=== PATIENT | female | born 1965 | race Asian ===

== ENCOUNTER 2016-09-26 09:00 | Outpatient (RCR) | payer OTHER, BC ==
--- NOTE | 2016-08-21 15:02 | PT/OT/ST INITIAL EVALUATION ---
Department of Health and Human Services Form Approved [facility] Care Financing Administration OMB No. [id number] PLAN OF CARE/ASSESSMENT FOR OUTPATIENT REHABILITATION (Complete for Initial Claims Only) 1. PATIENT'S NAME Kat Coyne 2. ACC # [id number] 3. HICN NA 4. PROVIDER NO. [id number] 5. TYPE: OT 6. PRIOR HOSPITALIZATION NA 7. PRIMARY DX M77.11-lateral epicondylitis, right elbow. 8. TREATMENT DX Weakness 9. ONSET DATE 07/24/2016 10. REFERRAL DATE 07/28/2016 11. SOC. DATE 08/18/2016 12. TIME OF EVAL 2:04 p.m. to 3:03 p.[address]. [address] RE[address] PHYSICIAN Dr. Alayna Angulo 13. CHARGES/UNITS 59 Total Charges 34 evaluation- [id number] Low Complexity 10 ultrasound 15 manual therapy 14. G CODES NA 15. PRIOR LEVEL OF FUNCTION; PERTINENT HISTORY (Prior therapy results, reason for referral.) S: Prior to therapy the patient consented to today's evaluation and treatment. The patient is a 50-year-old female referred by Dr. Alayna Angulo to address occupational concerns secondary to right lateral epicondylitis. Description/mechanism of injury: The patient reports noticing increased pain symptoms along the right lateral epicondyle area last June or July. The patient reports it has become increasingly worse within the past few months. Home set up/Prior level of function: The patient lives with her and daughter. Prior to onset the patient was independent with all ADLs and IADL tasks, including work tasks. Current functional performance and deficits: The patient works on an assembly line consisting of repetitive movements. The patient reports difficulty completing work tasks of carrying, handling, and manipulating everyday objects. Reports increased pain with gripping and twisting of right forearm. The patient is currently on restrictions of no twisting or pushing at work and on a 10 pound weight limit. The patient reports difficulty with cutting food, fastening bra, carrying groceries and manipulating containers. Patient's symptoms are affecting her ability to sleep. The patient reports waking up multiple times due to increased pain levels and tingling/numbness symptoms in right upper arm. The patient reports she has been wearing a counterforce brace and reports it helping to some extent. Pain level and location: Along the right lateral epicondyle and dorsal forearm. The patient rates her pain as 2/10 with rest and 4/10 with movement. Pt also reports arm feeling achy. Aggravating factors: Twisting, gripping, and carrying heavier objects. Relieving factors: Warm baths, lemon mint and heat help to some extent. Diagnostic testing: No diagnostic tests have been performed at this time. PMH (PT, OT, hospitalizations): Thyroid problems. The patient has completed no previously therapies. Current medications: Aleve, Propranolol, methimazole. No medication to complicate therapy. Personal health rating: Fair Patient's Goal: The patient's goals are to decrease pain levels to be able to do all work tasks and daily activities with no difficulty. Pt wants to get better to avoid surgery. 16. INITIAL ASSESSMENT/SAFETY PRECAUTIONS/MEDICAL COMPLICATIONS (Level of function at start of care. Be specific, use objective measures, list problems.) O: APPEARANCE AND OBSERVATION: The patient appeared to her initial occupational therapy evaluation this date. The patient was able to complete within functional limits of all shoulder, elbow and wrist planes of bilateral lower extremities. Noted the patient reported pain at end ranges with wrist and elbow movements. RANGE OF MOTION/FLEXIBILITY: Wrist extension 0/10 pain, wrist flexion 3/10 pain from right lateral epicondyle down to wrists. Elbow flexion 3/10 pain, elbow extension 2/10 pain. Noted during movements the patient demonstrates hypermobility in elbow joints. With resistive wrist flexion and extension, the patient reports 2/10 pain. With resistive supination, the patient reports 2/10 pain. STRENGTH: Groundskeeper Porter strength-right 35 pounds, left 39 pounds. Pinch strength 2-point pinch: right 6 pounds, left 10 pounds. 3-point pinch: right 10 pounds, left 10 pounds. Lateral pinch: right 8 pounds, left 10 pounds. OUTCOME ASSESSMENTS: The QuickDASH was completed this date, which is a standardized assessment with a score of 43.18. A score of 0 indicates no difficulties or limitations with daily activities or leisure tasks. The patient reports her maximum pain within the past 24 hours as 3/10. SPECIAL TESTING: Cozen test completed with the patient reporting increased pain along right lateral epicondyle area, indicating positive results. Tristan maneuver completed with increased pain during movements, indicating positive. Long finger test completed with patient reporting increased pain along dorsal forearm, indicating positive results. Palpation: The patient reports mild tenderness to palpation along lateral epicondyle area. Sensation: The patient reports numbness and tingling when working along upper arm. COMPLEXITY LEVEL: The patient presents with decreased strength and increased pain levels, resulting in difficulty grasping, handling and manipulating everyday items with right hand. The patient presents with no comorbidities affecting occupational performance. Required no modification of tasks or assistance during assessment, placing pt at a low complexity level. CONTRAINDICATIONS, PRECAUTIONS AND OBSTACLES TO DELIVERY OF CARE: None. INFORMED CONSENT: The OT discussed the OT diagnosis, prognosis, treatment plan, risks and expected outcome with the patient. The patient agreed to the OT plan of care this date. TODAY'S TREATMENT: Included education about occupational therapy and the occupational therapy process. Additionally provided education on activity modification of keeping elbows close to body and avoiding resistive gripping to prevent onset of symptoms. The therapist completed 3.0 MHz, 1.5 w/cm2, continuous ultrasound for 10 minutes along lateral epicondyle area to decrease pain and promote healing. Completed soft tissue mobilization with the use of a tool along dorsal forearm and lateral epicondyle area to realign tissues for improved movement and decreased pain levels. Provided pt with home exercise program consisting of exercises of elbow, wrist and forearm. 17. INITIAL POC: (Specify procedures, modalities, short and [facility] goals) A: OT DIAGNOSIS: The patient presents with decreased strength, increased pain levels and decreased ability to handle, manipulate and carry everyday items using right hand secondary to lateral epicondylitis. The patient would benefit from skilled occupational therapy services for design and administration of therapeutic activities and exercises to return to prior level of function with no difficulties. PROBLEMS/IMPAIRMENTS/FUNCTIONAL LOSS: Include decreased strength, increased pain and decreased ability to handle, manipulate and carry everyday items using right hand, which impacts the patient's ability to complete all work tasks and daily activities independently. INTENDED OUTCOMES: Include decrease pain levels, improve strength and movement of right upper extremity and improve overall function of right upper extremity for return to prior level of function and independence with all activities. Additionally to provide education on activity modifications to prevent onset of future symptoms. REHAB POTENTIAL/PROGNOSIS: The patient is expected to have a good prognosis based on consistent attendance of therapy sessions and completion of home exercise program following therapist's recommendations. SHORT TERM GOALS X1 WEEK: 1. The patient will verbalize and demonstrate compliance with home exercise program. 2. The patient will demonstrate ability to manipulate 8/10 everyday items/containers with 1/10 pain or less to improve independence with handling everyday items and completing work tasks. 3. The patient will demonstrate ability to cut food using right hand independently. LOCKSTITCH FRONT EDGE TAPE SEWER GOALS X3 WEEKS: 1. The patient will report a decrease in QuickDASH score of 15 to 20 points to indicate a meaningful change and increased independence with daily activities and leisure tasks. 2. The patient will demonstrate ability to independently lift and carry a 10 pound item using bilateral upper extremities with proper body mechanics to improve ability to complete all work tasks. 3. The patient will verbalize and demonstrate carryover of activity modification techniques during work and daily activities and report a reduction in symptoms. P: Plan to treat the patient 2 times a week for 3 weeks in order to address right lateral epicondylitis. Treatment is to include modalities, manual therapy, soft tissue mobilization, therapeutic exercise, active range of motion, passive range of motion, therapeutic activities, ADL/self-care, patient education/home exercise program and other treatments as indicated. 18. FREQUENCY 2 times a week 19. DURATION 3 weeks 20. FUNCTIONAL LEVEL (End of claim period) 21. PHYSICIAN SIGNATURE ? ON FILE OR ENTER HERE: 22. DATE: I certify the need for these services furnished under this plan of care and if for partial hospitalization. 23. CERTIFICATION FROM THROUGH [facility]-[id number]
== END 2016-10-14 14:58 | disposition home or self-care (01) ==
LOC: OT 09:00
PROVIDERS: ATTEND Internal Medicine
DX: M77.11 Lateral epicondylitis, right elbow (principal)